=== PATIENT | female | born 2000 | race Caucasian/White ===

== ENCOUNTER 2019-06-28 14:32 | Emergency (ER) | payer OTHER | END 2019-06-28 16:24 | disposition home or self-care (01) | LOC: ERS 14:32 | DX: F41.0 Panic disorder [episodic paroxysmal anxiety] (principal); J45.909 Unspecified asthma, uncomplicated | CPT/HCPCS: 93005 ==

== ENCOUNTER 2019-08-12 13:52 | Emergency (ER) | payer OTHER ==
[2019-08-12] MEDS ORDERED: Lorazepam 2 MG/ML VIAL ONE (14:56)
--- NOTE | 2019-08-12 15:09 | RAD ---
RADIOGRAPH CHEST 1 VIEW: DATE: 08/12/2019 HISTORY: 19-year-old female with dyspnea FINDINGS: The visualized lung colvin are clear. The cardiomediastinal silhouette and hilar shadows are normal. The lateral costophrenic angles are sharp. There is no pneumothorax. IMPRESSION: Negative.
--- NOTE | 2019-08-12 15:10 | RAD ---
Radiograph neck soft tissues 2 views: DATE: 08/12/2019 HISTORY: 19-year-old female with dyspnea and sensation of throat swelling. FINDINGS: No prevertebral soft tissue swelling. No epiglottic thickening. No radiopaque foreign body in the nec k visualized. Cervical trachea appears to be patent. IMPRESSION: Negative.
== END 2019-08-12 15:36 | disposition home or self-care (01) ==
LOC: ERS 13:52
DX: F41.0 Panic disorder [episodic paroxysmal anxiety] (principal); F45.8 Other somatoform disorders; J45.909 Unspecified asthma, uncomplicated; F41.9 Anxiety disorder, unspecified; Z79.51 Long term (current) use of inhaled steroids; Z79.899 Other long term (current) drug therapy
CPT/HCPCS: 70360; 71045; 93005; 96372; J2060